=== PATIENT | female | born 1995 | race Caucasian/White ===

== ENCOUNTER 2016-10-03 18:25 | Emergency (ER) | payer BC | END 2016-10-03 19:50 | disposition left against medical advice (07) | LOC: ER 18:25 | DX: Z53.20 Procedure and treatment not carried out because of patient's decision for unspecified reasons (principal) ==

== ENCOUNTER 2016-12-01 23:04 | Emergency (ER) | payer BC ==
--- NOTE | 2016-12-01 23:22 | Emergency Department Record ---
History of Present Illness - General Chief Complaint: Chest Pain Stated Complaint: CHEST PAIN Time Seen by Provider: 12/01/16 23:11 Source: Patient Mode of Arrival: Ambulatory Limitations: No limitations - History of Present Illness Initial Comments: 21 yo female presents with rapid heart rate a feeling of heart pounding lasting about 2 hours tonight. She states she had chest pain and shortness of breath. She states over the last 3 years she has had similar episodes in the past. No syncope. She has not seen a raw silk grader or been given any specific diagnosis for her episodic palpitations. She has underlying thyroid disease. She recently saw her awning frame maker. Her TSH on 11/27 was 42. Her awning frame maker increased her Synthroid to 250mcg from 200mcg. Her last episode of palpitations was about 6 months ago. The patient's father and 6 of her uncles have heart disease due to "small arteries". MD Complaint: Chest pain -: Hour(s) (2) Onset: During rest Pain Radiation: None Severity: Moderate Consistency: Now resolved Improves With: Nothing Worsens With: Nothing Context: Other (Hx of the same) Treatments Prior to Arrival: None - Related Data Home Medications Medication Instructions Recorded Confirmed Last Taken Cholecalciferol (Vitamin D3) 1,000 unit PO DAILY 12/01/16 12/01/16 Unknown [Vitamin D3] Levothyroxine Sodium [Tirosint] 100 mcg PO DAILY 12/01/16 12/01/16 Unknown Allergies Allergy/AdvReac Type Severity Reaction Status Date / Time ceftriaxone sodium Allergy HIVES Verified 12/01/16 23:06 [From Rocephin] diazepam [From Valium] AdvReac BEHAVIORAL Verified 12/01/16 23:06 CHANGES morphine AdvReac NAUSEA Verified 12/01/16 23:06 Review of Systems Constitutional: Denies: Chills, Fever, Malaise, Weakness Eyes: Denies: Eye discharge ENT: Denies: Congestion, Throat pain Respiratory: Reports: Dyspnea. Denies: Cough, Hemoptysis, Stridor Cardiovascular: Reports: Chest pain, Palpitations. Denies: Dyspnea on exertion , Edema, Syncope Endocrine: Denies: Fatigue, Polydipsia, Polyuria Gastrointestinal: Denies: Abdominal pain, Diarrhea, Nausea, Vomiting Genitourinary: Denies: Dysuria, Urgency Musculoskeletal: Denies: Arthralgia, Back pain, Joint swelling, Myalgia Skin: Denies: Bruising, Change in color, Rash Neurological: Denies: Headache, Numbness, Weakness Psychiatric: Reports: Anxiety Hematological/Lymphatic: Denies: Blood Clots, Easy bleeding, Easy bruising, Swollen glands Past Medical History - SOCIAL HISTORY Smoking Status: Never smoker - RESPIRATORY Hx Respiratory Disorders: No - CARDIOVASCULAR Hx Cardio Disorders: No - NEURO Hx Neuro Disorders: No - GI Hx GI Disorders: No - Hx Genitourinary Disorders: Yes Hx Renal Disease: Yes (hx of Acute Kidney Failure) Comment:: Acute Kidney Failure - ENDOCRINE Hx Endocrine Disorders: Yes Hx Thyroid Disease: Yes (Hypothyroid) Comment:: Hx hashimotos disease - MUSCULOSKELETAL Hx Musculoskeletal Disorders: No - PSYCH Hx Psych Problems: Yes Hx Anxiety: Yes Hx Depression: Yes - HEMATOLOGY/ONCOLOGY Hx Hematology/Oncology Disorders: No Family Medical History Family Hx Comment (NOT TO BE USED IN PLACE OF ITEMS BELOW): hx of clotting disorder w mother Hx Heart Disease: Grandparents Physical Exam - General General Appearance: Alert, Oriented x3, Cooperative, Anxious Limitations: No limitations - Head Head exam: Atraumatic, Normal inspection - Eye Eye exam: Normal appearance. negative: Conjunctival injection, Periorbital swelling - ENT ENT exam: Normal exam, Mucous membranes moist Ear exam: Normal external inspection Nasal Exam: Normal inspection Mouth exam: Normal external inspection - Neck Neck exam: Normal inspection. negative: Lymphadenopathy, Thyromegaly - Respiratory Respiratory exam: Normal lung sounds bilaterally. negative: Accessory muscle use, Decreased breath sounds, Respiratory distress - Cardiovascular Cardiovascular Exam: Normal rhythm, Normal heart sounds, Tachycardia Peripheral Pulses: 2+: Radial (R), Radial (L) - GI/Abdominal GI/Abdominal exam: negative: Soft, Tenderness - Rectal Rectal exam: Deferred - exam: Deferred - Extremities Extremities exam: Normal inspection, Full ROM, Normal capillary refill. negative: Tenderness - Back Back exam: Reports: Normal inspection, Full ROM. Denies: Muscle spasm, Rash noted, Tenderness - Neurological Neurological exam: Alert, Normal gait, Oriented X3 - Psychiatric Psychiatric exam: Normal affect, Normal mood. negative: Agitated, Anxious - Skin Skin exam: Dry, Intact, Normal color, Warm. negative: Cyanosis, Diaphoretic, Erythema, Mottled Course Vital Signs 12/01/16 23:07 Temperature 98.2 F Pulse Rate [ 117 H Pulse Ox Probe] Respiratory 24 Rate Blood Pressure 137/89 [Left Arm] Pulse Ox 95 - Reevaluation(s) Reevaluation #1: EKG 23:05 Sinus tach with a rate of 110, intervals normal, axis normal, ST normal, 12/01/16 23:13 No changes from prior 12/01/16 23:15 The patient is doing better quickly as HR improves HR is 102 decreased form arrival 12/01/16 23:59 Reevaluation #2: HR 92 labs reviewed TSH is 27 improved from prior of 42 Normal troponin No electrolyte abnormalities 12/02/16 00:36 D-dimer is normal at 0.2 12/02/16 00:42 12/02/16 01:08 Repeat Troponin will occur at 3am Current HR is 87 12/02/16 04:34 Repeat Troponin is increased to 0.44 12/02/16 04:35 call center analyst for [facility] [place] paged. Reevaluation #3: I THAO Rodriguez of cardiology He will accept the patient for transfer to [facility] [place] for further work up given her chest pain with a troponin increase from .30 to .44 Prior EKG's will be sent including 11/2014 with SVT 12/02/16 05:08 12/02/16 05:21 12/02/16 06:56 Bed assigned by [facility] [place] Ready for transfer Medical Decision Making - Lab Data Result diagrams: 12/01/16 23:10 12/01/16 23:10 Disposition Disposition: Transfer Clinical Impression: Palpitations, History of PSVT (paroxysmal supraventricular tachycardia), Elevated troponin I level Disposition: Acute Care Hospital Transfer Transfer To: [facility] [place] Reason For Transfer: SVT, Elevated Troponin, Chest pain Accepting Physician: Michael Time Discussed w/Accepting Physician: 05:09 Condition: (2) Stable Instructions: Heart Palpitations (ED) Forms: Patient Portal Access Time of Disposition: 05:09 Quality - Quality Measures Quality Measures: N/A - Blood Pressure Screening Does Patient Have Any of the Following: No Blood Pressure Classification: Normal BP Reading Systolic Measurement: 91 Diastolic Measurement: 56 Screening for High Blood Pressure: < Normal BP, F/U Not Required > [G8783] Pre-Hypertensive Follow-up Interventions: Referral to alternative/primary care provider.
[2016-12-01] MEDS: 0.9 % SODIUM CHLORIDE 1,000 ML BAG IV ONE (23:55)
[2016-12-02] LABS: BASO % 0.5 % (0-6); EOS % 1.3 % (0-6); HEMATOCRIT 43.8 % (35.0-47.0); LYMPH % 32.9 % (16-45); MEAN CORPUSCULAR HEMOGLOBIN 23.6 pg (27-33); MEAN PLATELET VOLUME 10.3 fl (7.4-10.4); MONO % 10.3 % (0-9); PLATELET COUNT 357 K/uL (130-400); RED BLOOD COUNT 5.92 M/uL (3.80-5.40); RED CELL DISTRIBUTION WIDTH 16.7 % (11.5-14.5); WHITE BLOOD COUNT W/O DIFF 12.4 K/uL (4.2-12.2)
[2016-12-02 00:31] LABS: ALB/GLOB RATIO 1.2 (1.1-1.8); ALBUMIN 4.6 g/dL (4.0-5.0); ALKALINE PHOSPHATASE 93 U/L (35-104); ALT/SGPT 8 U/L (<33); AST/SGOT 17 U/L (10.0-35.0); CREATININE 0.8 mg/dL (0.5-0.9); EST GLOMERULAR FILTRATION RATE > 60 mL/min; GLUCOSE,RANDOM 89 mg/dL (74-109); THYROID STIMULATING HORMONE 27.66 uIU/mL (0.270-4.20); TOTAL PROTEIN 8.3 g/dL (6.6-8.7)
[2016-12-02 00:32] LABS: BILIRUBIN,TOTAL < 0.30 mg/dL (0.2-1.0)
[2016-12-02 03:12] LABS: URINE APPEARANCE CLEAR; URINE BILIRUBIN NEGATIVE (NEGATIVE); URINE BLOOD NEGATIVE (NEGATIVE); URINE COLOR YELLOW; URINE GLUCOSE (UA) NEGATIVE (NEGATIVE); URINE KETONE NEGATIVE (NEGATIVE); URINE LEUKOCYTE ESTERASE NEGATIVE (NEGATIVE); URINE NITRITE NEGATIVE (NEGATIVE); URINE PROTEIN NEGATIVE (NEGATIVE); URINE UROBILINOGEN 0.2 E.U./dL (0.20 - 1.00)
[2016-12-02 04:27] LABS: HCG,QUALITATIVE URINE NEGATIVE (NEGATIVE)
[2016-12-02] MEDS: ASPIRIN 81 MG CHEWABLE TABLET PO ONE (04:33)
== END 2016-12-02 07:30 | disposition short-term general hospital (02) ==
LOC: ER 23:04
DX: R00.2 Palpitations (principal); R79.89 Other specified abnormal findings of blood chemistry; R06.02 Shortness of breath; R07.89 Other chest pain; E06.3 Autoimmune thyroiditis
CPT/HCPCS: 80053; 81003; 81025; 83735; 84443; 84484; 85025; 85379; 93005; 93010; 99285; J7030

== ENCOUNTER 2017-05-04 18:47 | Emergency (ER) | payer BC ==
[2017-05-04] MEDS ORDERED: THROMBIN/GELATIN FOAM HEMOSTAT (THROMBI-GEL) TP ONE (19:30)
[2017-05-04] MEDS ORDERED: Diph,Pert(Acell),Tet Vac 0.5 ML SYR IM ONE (19:30)
--- NOTE | 2017-05-04 19:32 | Emergency Department Record ---
History of Present Illness - General Chief Complaint: Laceration(s) Stated Complaint: LAC ON FINGER Time Seen by Provider: 05/04/17 19:30 Source: Patient Mode of Arrival: Ambulatory Limitations: No limitations - History of Present Illness Initial Commments: 22 yo female presents ED for evaluation of a laceration to the right ring finger 1 hours prior to arrival. Patient reports that she was cutting vegetable when she sliced of a small tip of the lateral tip of the tuft. Patient denies other injury, denies health problems at her baseline, but is unsure of her last tetanus update. Patient reports FROM of the finger on examination. Onset/Timin -: Hour(s) Extremity Location: Right: Hand Place: Home Context: Accidental Associated Symptoms: None - [place] Coma Scale Eye Response: (4) Open spontaneously Motor Response: (6) Obeys commands Verbal Response: (5) Oriented Inge Total: 15 - Related Data Previous Rx's Medication Instructions Recorded Cephalexin [Keflex] 500 mg PO QID #28 cap 05/04/17 Allergies Allergy/AdvReac Type Severity Reaction Status Date / Time ceftriaxone sodium Allergy HIVES Verified 05/04/17 19:11 [From Rocephin] diazepam [From Valium] AdvReac BEHAVIORAL Verified 05/04/17 19:11 CHANGES morphine AdvReac NAUSEA Verified 05/04/17 19:11 Travel Screening - Travel/Exposure Within Last 30 Days Have you traveled within the last 30 days?: No - Travel/Exposure Within Last Year Have you traveled outside the [place] in the last year?: No - Additonal Travel Details Have you been exposed to anyone with a communicable illness?: No - Travel Symptoms Symptom Screening: None Review of Systems Constitutional: Denies: Chills, Fever, Malaise, Night sweats Eyes: Denies: Eye discharge, Eye pain ENT: Denies: Congestion, Ear pain, Epistaxis Respiratory: Denies: Cough, Dyspnea Cardiovascular: Denies: Chest pain, Dyspnea on exertion Endocrine: Denies: Fatigue, Heat or cold intolerance Gastrointestinal: Denies: Abdominal pain, Nausea, Vomiting Genitourinary: Denies: Incontinence, Retention Musculoskeletal: Denies: Arthralgia, Back pain Skin: Reports: Other (finger laceration). Denies: Bruising, Change in color Neurological: Denies: Abnormal gait, Confusion, Headache, Seizure Psychiatric: Denies: Anxiety Hematological/Lymphatic: Denies: Anemia, Blood Clots Past Medical History - SOCIAL HISTORY Smoking Status: Never smoker Alcohol Use: None Drug Use: None - RESPIRATORY Hx Respiratory Disorders: No - CARDIOVASCULAR Hx Cardio Disorders: No Comment:: rapid heart rate - NEURO Hx Neuro Disorders: No - GI Hx GI Disorders: No - Hx Genitourinary Disorders: Yes Hx Renal Disease: Yes (hx of Acute Kidney Failure) Comment:: Acute Kidney Failure - ENDOCRINE Hx Endocrine Disorders: Yes Hx Thyroid Disease: Yes (Hypothyroid) Comment:: Hx hashimotos disease - MUSCULOSKELETAL Hx Musculoskeletal Disorders: No - PSYCH Hx Psych Problems: Yes Hx Anxiety: Yes Hx Depression: Yes - HEMATOLOGY/ONCOLOGY Hx Hematology/Oncology Disorders: No Family Medical History Any Significant Family History?: Yes Family Hx Comment (NOT TO BE USED IN PLACE OF ITEMS BELOW): hx of clotting disorder w mother Hx Heart Disease: Grandparents Physical Exam - General General Appearance: Alert, Oriented x3, Cooperative, No acute distress Limitations: No limitations - Head Head exam: Atraumatic, Normocephalic, Normal inspection Head exam detail: negative: Abrasion, Contusion, Mcmullen's sign, General tenderness, Hematoma, Laceration - Eye Eye exam: Normal appearance. negative: Conjunctival injection, Periorbital swelling, Periorbital tenderness, Scleral icterus - ENT Ear exam: negative: Auricular hematoma, Auricular trauma Nasal Exam: negative: Active bleeding, Discharge, Dried blood, Foreign body Mouth exam: negative: Drooling, Laceration, Muffled voice, Tongue elevation Teeth exam: negative: Dental caries, Dental tenderness # - Neck Neck exam: Normal inspection. negative: Meningismus, Tenderness - Respiratory Respiratory exam: Normal lung sounds bilaterally. negative: Rales, Respiratory distress, Rhonchi, Stridor - Cardiovascular Cardiovascular Exam: Regular rate, Normal rhythm, Normal heart sounds - GI/Abdominal GI/Abdominal exam: Soft. negative: Rebound, Rigid, Tenderness - Rectal Rectal exam: Deferred - exam: Deferred - Extremities Extremities exam: Tenderness, Other (0.5 cm tip lacertion with tissue loss present, no tissure present for closure of the wound. FROM withotu evidence for tendon laceration.). negative: Calf tenderness, Pedal edema - Back Back exam: Denies: CVA tenderness (R), CVA tenderness (L) - Neurological Neurological exam: Alert, Normal gait, Oriented X3 - Psychiatric Psychiatric exam: Normal affect, Normal mood - Skin Skin exam: Normal color. negative: Abrasion Type of lesion: negative: abrasion Course Vital Signs 05/04/17 19:07 Temperature 98.9 F Pulse Rate 94 H Respiratory 20 Rate Blood Pressure 118/88 Pulse Ox 96 - Reevaluation(s) Reevaluation #1: 05/04/17 19:41 Patient presents to ED for evaluation of finger tuft laceration with tissue loss , cannot be closed primarily dud to tissue loss. Will place thrombi-pad with instructions for dressing changes, administer Keflex for antibiotic prophylaxis. Disposition Disposition: Discharge Clinical Impression: Finger laceration Qualifiers: Encounter type: initial encounter Finger: ring finger Damage to nail status: without damage Foreign body presence: without foreign body Laterality: right Qualified Code(s): S61.214A - Laceration without foreign body of right ring finger without damage to nail, initial encounter Disposition: Home, Self-Care Condition: (2) Stable Instructions: Laceration (ED) Additional Instructions: Return to ED if your symptoms worsen or if you have any concerns. Dressing changes daily for 1 week. Keflex as directed. Follow-up with your family doctor in 3-5 days as directed. Prescriptions: Cephalexin [Keflex] 500 mg PO QID #28 cap Forms: Patient Portal Access Time of Disposition: 19:32 Quality - Quality Measures Quality Measures: N/A - Blood Pressure Screening Does Patient Have Any of the Following: No Blood Pressure Classification: Pre-Hypertensive BP Reading Systolic Measurement: 118 Diastolic Measurement: 88 Screening for High Blood Pressure: < Pre-Hypertensive BP, F/U Documented > [ G8950] Pre-Hypertensive Follow-up Interventions: Referral to alternative/primary care provider.
[2017-05-04] MEDS ORDERED: CEPHALEXIN 500 MG CAPSULE PO STA (19:42)
[2017-05-04] MEDS ORDERED: IBUPROFEN 600 MG TABLET PO ONE (19:42)
== END 2017-05-04 20:08 | disposition home or self-care (01) ==
LOC: ER 18:47
DX: S61.214A Laceration without foreign body of right ring finger without damage to nail, initial encounter (principal); W26.0XXA Contact with knife, initial encounter; Y93.G1 Activity, food preparation and clean up; Y92.009 Unspecified place in unspecified non-institutional (private) residence as the place of occurrence of the external cause
CPT/HCPCS: 90715; 96372; 99283

== ENCOUNTER 2017-06-12 11:00 | Emergency (ER) | payer BC ==
--- NOTE | 2017-06-12 11:21 | Emergency Department Record ---
History of Present Illness - General Chief Complaint: Abdominal Pain Stated Complaint: ABD PAIN LEFT SIDE Time Seen by Provider: 06/12/17 11:18 Source: Patient Mode of Arrival: Ambulatory Limitations: No limitations - History of Present Illness Initial Comments: 22 yo female presents with abdominal pain for about 1 to 1.5 weeks. The pain is epigastric and LUQ. She has had two stools during that time. They have been firm. No blood. She has had occasional headaches. Occasional radiation of pain from the epigastrium to the chest. Some burping. No acid taste. The pain occasionally radiates to the back. She was seen in the [facility] care today. She had a normal UA and negative UCG and sent to the ED MD Complaint: Abdominal pain -: Week(s) (1) Location: Epigastric, LUQ Radiation: Back, LUQ Migration to: LUQ Severity: Moderate Quality: Aching Consistency: Intermittent Improves With: Nothing Worsens With: Eating Associated Symptoms: Other - Related Data Previous Rx's Medication Instructions Recorded Polyethylene Glycol 3350 [Miralax] 1 packet PO DAILY #20 packet 06/12/17 Allergies Allergy/AdvReac Type Severity Reaction Status Date / Time ceftriaxone sodium Allergy HIVES Verified 06/12/17 11:11 [From Rocephin] diazepam [From Valium] AdvReac BEHAVIORAL Verified 06/12/17 11:11 CHANGES morphine AdvReac NAUSEA Verified 06/12/17 11:11 Review of Systems Constitutional: Denies: Chills, Fever, Malaise, Weakness Eyes: Denies: Eye discharge ENT: Denies: Congestion, Dental pain, Ear pain, Throat pain Respiratory: Denies: Cough, Dyspnea, Hemoptysis, Stridor, Wheezes Cardiovascular: Reports: Chest pain. Denies: Palpitations, Syncope Endocrine: Denies: Fatigue Gastrointestinal: Reports: As per HPI, Abdominal pain, Constipation, Nausea. Denies: Diarrhea, Hematemesis, Hematochezia, Melena, Vomiting Genitourinary: Denies: Abnormal menses, Dysuria Musculoskeletal: Reports: Back pain. Denies: Arthralgia, Joint swelling, Myalgia Skin: Denies: Bruising, Change in color, Rash Neurological: Reports: Headache. Denies: Numbness, Vertigo, Weakness Psychiatric: Reports: Depression. Denies: Anxiety Hematological/Lymphatic: Denies: Blood Clots, Easy bleeding, Easy bruising, Swollen glands Past Medical History - SOCIAL HISTORY Smoking Status: Never smoker Drug Use: None - RESPIRATORY Hx Respiratory Disorders: No - CARDIOVASCULAR Hx Cardio Disorders: No Comment:: rapid heart rate - NEURO Hx Neuro Disorders: No - GI Hx GI Disorders: No - Hx Genitourinary Disorders: Yes Hx Renal Disease: Yes (hx of Acute Kidney Failure) Comment:: Acute Kidney Failure - ENDOCRINE Hx Endocrine Disorders: Yes Hx Thyroid Disease: Yes (Hypothyroid) Comment:: Hx hashimotos disease - MUSCULOSKELETAL Hx Musculoskeletal Disorders: No - PSYCH Hx Psych Problems: Yes Hx Anxiety: Yes Hx Depression: Yes - HEMATOLOGY/ONCOLOGY Hx Hematology/Oncology Disorders: No Family Medical History Family Hx Comment (NOT TO BE USED IN PLACE OF ITEMS BELOW): hx of clotting disorder w mother Hx Heart Disease: Grandparents Physical Exam - General General Appearance: Alert, Oriented x3, Cooperative, No acute distress Limitations: No limitations - Head Head exam: Atraumatic, Normal inspection - Eye Eye exam: Normal appearance, Conjunctival injection. negative: Scleral icterus - ENT ENT exam: Normal exam, Mucous membranes moist, Normal orophraynx Ear exam: Normal external inspection Nasal Exam: Normal inspection Mouth exam: Normal external inspection Teeth exam: Normal inspection Throat exam: Normal inspection - Neck Neck exam: Normal inspection - Respiratory Respiratory exam: Normal lung sounds bilaterally. negative: Respiratory distress - Cardiovascular Cardiovascular Exam: Regular rate, Normal rhythm, Normal heart sounds - GI/Abdominal GI/Abdominal exam: Soft, Normal bowel sounds, Tenderness (mild epigastric and LUQ tenderness to palpation, soft, non tender remaining abdomen). negative: Distended, Guarding, Rebound, Rigid - Rectal Rectal exam: Deferred - exam: Deferred - Extremities Extremities exam: Normal inspection. negative: Calf tenderness, Pedal edema, Tenderness - Back Back exam: Reports: Normal inspection, Full ROM. Denies: CVA tenderness (R), CVA tenderness (L), Muscle spasm, Paraspinal tenderness, Rash noted, Tenderness , Vertebral tenderness - Neurological Neurological exam: Alert, Normal gait, Oriented X3. negative: Abnormal gait, Altered - Psychiatric Psychiatric exam: Normal affect, Normal mood. negative: Agitated, Anxious - Skin Skin exam: Dry, Intact, Normal color, Warm Course - Reevaluation(s) Reevaluation #1: 06/12/17 11:22 The UA was reviewed Negative for blood or infection UCG was negative 06/12/17 12:00 The CBC was reviewed. No acute changes The AAS was reviewed. Significant stool throughout the colon. 06/12/17 12:16 I did discuss with her her thyroid likely plays a role in her constipation. She has longstanding hypothyroidism that is followed as an outpatient. Medical Decision Making - Lab Data Result diagrams: 06/12/17 11:39 06/12/17 11:39 Disposition Disposition: Discharge Clinical Impression: Epigastric pain, Constipation Disposition: Home, Self-Care Condition: (1) Good Instructions: Constipation (ED), Abdominal Pain (ED) Additional Instructions: Stay well hydrated Return if you have vomiting, fever, or any concerns of worsening You have constipation on your XR today Increase your fluids, fruit, fiber Call your doctor to be seen in the next one week Prescriptions: Polyethylene Glycol 3350 [Miralax] 1 packet PO DAILY #20 packet Forms: Patient Portal Access Time of Disposition: 12:02 Quality - Quality Measures Quality Measures: N/A - Blood Pressure Screening Does Patient Have Any of the Following: No Blood Pressure Classification: Normal BP Reading Systolic Measurement: 111 Diastolic Measurement: 77 Screening for High Blood Pressure: < Normal BP, F/U Not Required > [G8783]
[2017-06-12 11:48] LABS: BASO % 0.4 % (0-6); EOS % 0.7 % (0-6); GRAN % 69.2 % (47-80); HEMATOCRIT 40.1 % (35.0-47.0); HEMOGLOBIN 12.9 gm/dl (11.6-16.0); LYMPH % 21.6 % (16-45); MEAN CELL VOLUME 78.3 fl (81-97); MEAN CORPUSCULAR HEMOGLOBIN 25.2 pg (27-33); MEAN CORPUSCULAR HGB CONC 32.2 g/dl (32-36); MONO % 8.1 % (0-9); PLATELET COUNT 331 K/uL (130-400); RED BLOOD COUNT 5.12 M/uL (3.80-5.40); RED CELL DISTRIBUTION WIDTH 14.6 % (11.5-14.5); WHITE BLOOD COUNT W/O DIFF 8.9 K/uL (4.2-12.2)
[2017-06-12 12:08] LABS: BLOOD UREA NITROGEN 8 mg/dL (6-20); CREATININE 0.7 mg/dL (0.5-0.9); EST GLOMERULAR FILTRATION RATE > 60 mL/min
[2017-06-12 12:09] LABS: TOTAL PROTEIN 7.7 g/dL (6.6-8.7)
[2017-06-12 12:11] LABS: GLUCOSE,RANDOM 90 mg/dL (74-109)
[2017-06-12 12:13] LABS: ALT/SGPT 8 U/L (<33)
[2017-06-12 12:14] LABS: ALB/GLOB RATIO 1.3 (1.1-1.8); ALBUMIN 4.4 g/dL (4.0-5.0); ALKALINE PHOSPHATASE 70 U/L (35-104); AST/SGOT 12 U/L (10.0-35.0); LIPASE 36 U/L (13-60)
--- NOTE | 2017-06-13 09:52 | RADIOLOGY REPORT ---
EXAM: ABDOMEN, SINGLE VIEW HISTORY: PAIN. TECHNIQUE: A single AP view of the abdomen was obtained. Comparison: None. FINDINGS: Evaluation for free air is limited on the supine view. There is a large amount of stool in the colon. The gas pattern is nonspecific. IMPRESSION: ABUNDANT STOOL IN THE COLON. JOB NUMBER: [id number] MTDD
== END 2017-06-12 12:34 | disposition home or self-care (01) ==
LOC: ER 11:00
DX: K59.00 Constipation, unspecified (principal); R10.13 Epigastric pain; N17.9 Acute kidney failure, unspecified; E03.9 Hypothyroidism, unspecified
CPT/HCPCS: 74018; 80053; 83690; 85025; 99283; 99284

== ENCOUNTER 2018-02-22 18:10 | Emergency (ER) | payer BC ==
--- NOTE | 2018-02-22 18:25 | Emergency Department Record ---
History of Present Illness - General Chief complaint: Female Urogenital Problem Time Seen by Provider: 02/22/18 18:15 Source: Patient Mode of Arrival: Ambulatory Limitations: No limitations - History of Present Illness Initial comments: 23 yo female presents to ED for evaluation of dysuria symptoms for the past 1 week. Patient reports similar symptoms previously related to UTIs, denies fevers, chills, abdominal pain, or flank pain symptoms. Patient denies health problems at her baseline other than hypothyroidism. MD Complaint: Dysuria Onset/Timin -: Week(s) Location: Suprapubic Radiation: Non-radiating Severity: Moderate Severity scale (1-10): 5 Quality: Aching Consistency: Constant Worsens with: Urination Patient : No Associated Symptoms: Denies other symptoms - Related Data Home Medications Medication Instructions Recorded Confirmed Last Taken Lubiprostone [Amitiza] 8 mcg PO DAILY 02/22/18 02/22/18 1 Day Ago ~02/21/18 Previous Rx's Medication Instructions Recorded Nitrofurantoin Tarrant [Macrobid] 100 mg PO BID #14 capsule 02/22/18 Phenazopyridine HCl [Pyridium] 200 mg PO TID #6 tab 02/22/18 Allergies Allergy/AdvReac Type Severity Reaction Status Date / Time ceftriaxone sodium Allergy HIVES Unverified 11/28/17 07:28 [From Rocephin] diazepam [From Valium] AdvReac BEHAVIORAL Unverified 11/28/17 07:28 CHANGES morphine AdvReac NAUSEA Unverified 11/28/17 07:28 Travel Screening - Travel/Exposure Within Last 30 Days Have you traveled within the last 30 days?: No - Travel/Exposure Within Last Year Have you traveled outside the [place] in the last year?: No - Additonal Travel Details Have you been exposed to anyone with a communicable illness?: No - Travel Symptoms Symptom Screening: None Review of Systems Constitutional: Denies: Chills, Fever, Malaise, Night sweats Eyes: Denies: Eye discharge, Eye pain ENT: Denies: Congestion, Ear pain, Epistaxis Respiratory: Denies: Cough, Dyspnea Cardiovascular: Denies: Chest pain, Dyspnea on exertion Endocrine: Denies: Fatigue, Heat or cold intolerance Gastrointestinal: Denies: Abdominal pain, Nausea, Vomiting Genitourinary: Reports: Dysuria. Denies: Incontinence, Retention Musculoskeletal: Denies: Arthralgia, Back pain Skin: Denies: Bruising, Change in color Neurological: Denies: Abnormal gait, Confusion, Headache, Seizure Psychiatric: Denies: Anxiety Hematological/Lymphatic: Denies: Anemia, Blood Clots Past Medical History - SOCIAL HISTORY Smoking Status: Never smoker Alcohol Use: None Drug Use: None - RESPIRATORY Hx Respiratory Disorders: No - CARDIOVASCULAR Hx Cardio Disorders: No Comment:: rapid heart rate - NEURO Hx Neuro Disorders: No - GI Hx GI Disorders: No - Hx Genitourinary Disorders: Yes Hx Renal Disease: Yes (hx of Acute Kidney Failure) Comment:: Acute Kidney Failure - ENDOCRINE Hx Endocrine Disorders: Yes Hx Thyroid Disease: Yes (Hypothyroid) Comment:: Hx hashimotos disease - MUSCULOSKELETAL Hx Musculoskeletal Disorders: No - PSYCH Hx Psych Problems: Yes Hx Anxiety: Yes Hx Depression: Yes - HEMATOLOGY/ONCOLOGY Hx Hematology/Oncology Disorders: No Family Medical History Any Significant Family History?: Yes Family Hx Comment (NOT TO BE USED IN PLACE OF ITEMS BELOW): hx of clotting disorder w mother Hx Heart Disease: Grandparents Physical Exam - General General Appearance: Alert, Oriented x3, Cooperative, Mild distress Limitations: No limitations - Head Head exam: Atraumatic, Normocephalic, Normal inspection Head exam detail: negative: Abrasion, Contusion, Mcmullen's sign, General tenderness, Hematoma, Laceration - Eye Eye exam: Normal appearance. negative: Conjunctival injection, Periorbital swelling, Periorbital tenderness, Scleral icterus - ENT Ear exam: negative: Auricular hematoma, Auricular trauma Nasal Exam: negative: Active bleeding, Discharge, Dried blood, Foreign body Mouth exam: negative: Drooling, Laceration, Muffled voice, Tongue elevation - Neck Neck exam: Normal inspection. negative: Meningismus, Tenderness - Respiratory Respiratory exam: Normal lung sounds bilaterally. negative: Rales, Respiratory distress, Rhonchi, Stridor - Cardiovascular Cardiovascular Exam: Regular rate, Normal rhythm, Normal heart sounds - GI/Abdominal GI/Abdominal exam: Soft. negative: Rebound, Rigid, Tenderness - Rectal Rectal exam: Deferred - exam: Deferred - Extremities Extremities exam: Normal inspection. negative: Pedal edema, Tenderness - Back Back exam: Denies: CVA tenderness (R), CVA tenderness (L) - Neurological Neurological exam: Alert, Normal gait, Oriented X3 - Psychiatric Psychiatric exam: Normal affect, Normal mood - Skin Skin exam: Normal color. negative: Abrasion Type of lesion: negative: abrasion Course Vital Signs 02/22/18 18:13 Temperature 98.7 F Pulse Rate 98 H Respiratory 18 Rate Blood Pressure 130/84 Pulse Ox 99 - Reevaluation(s) Reevaluation #1: 02/22/18 18:42 UA was reviewed: 7-10 RBCs 10-15 Epithelial cells 36-50 WBCs Patient was updated on her result, appears contaminated however with the number of WBCs and symptoms, will treat with Macrobid and Pyridium as directed. Patient agrees with the plan of care as discussed. Disposition Disposition: Discharge Clinical Impression: Cystitis Disposition: Home, Self-Care Condition: (2) Stable Instructions: Urinary Tract Infection in Women (ED) Additional Instructions: Return to ED if your symptoms worsen or if you have any concerns. Macrobid and Pyridium as directed. Follow-up with your family doctor in 3-5 days as directed. Prescriptions: Nitrofurantoin Tarrant [Macrobid] 100 mg PO BID #14 capsule Phenazopyridine HCl [Pyridium] 200 mg PO TID #6 tab Forms: Patient Portal Access Time of Disposition: 18:44 Quality - Quality Measures Quality Measures: N/A - Blood Pressure Screening Does Patient Have Any of the Following: No Blood Pressure Classification: Pre-Hypertensive BP Reading Systolic Measurement: 130 Diastolic Measurement: 84 Screening for High Blood Pressure: < Pre-Hypertensive BP, F/U Documented > [ [id number]] Pre-Hypertensive Follow-up Interventions: Referral to alternative/primary care provider.
[2018-02-22 18:33] LABS: URINE APPEARANCE SL CLOUDY; URINE BILIRUBIN NEGATIVE (NEGATIVE); URINE BLOOD TRACE-I (NEGATIVE); URINE COLOR YELLOW; URINE GLUCOSE (UA) NEGATIVE (NEGATIVE); URINE KETONE NEGATIVE (NEGATIVE); URINE LEUKOCYTE ESTERASE SMALL (NEGATIVE); URINE NITRITE NEGATIVE (NEGATIVE); URINE UROBILINOGEN 0.2 E.U./dL (0.20 - 1.00)
[2018-02-22 18:40] LABS: URINE MUCUS LIGHT; URINE WBC 36 - 50 (0-2/hpf)
== END 2018-02-22 18:49 | disposition home or self-care (01) ==
LOC: ER 18:10
DX: N30.00 Acute cystitis without hematuria (principal)
CPT/HCPCS: 81001; 99282

== ENCOUNTER 2018-09-01 10:24 | Day surgery (SDC) | payer BC ==
[2018-09-01] MEDS ORDERED: PROPOFOL 10 MG/ML VIAL IV ONE (10:25)
[2018-09-01] MEDS ORDERED: LIDOCAINE 2% MDV (20MG/ML) 20ML VIAL IV ONE (10:25)
--- NOTE | 2018-09-03 07:50 | Operative Note ---
OPERATION: ESOPHAGOGASTRODUODENOSCOPY with multiple biopsies. INDICATION: Iron deficiency. Upper endoscopy is performed at this time for further evaluation. ANESTHESIA: Intravenous sedation was administered by the department of anesthesiology and included Diprivan titrated to effect. PROCEDURE: Following informed consent from this alert individual, including a discussion of the risks and benefits of the procedure and an opportunity for the patient to ask questions, the patient was in the left lateral decubitus position. The Olympus [id number] video endoscope was inserted into the esophagus without resistance. The proximal esophagus had a normal appearance with normal folds and distensibility. The mid esophagus likewise was free from changes. The GE junction had some mild erythema with edema noted, and for this reason biopsies were taken. There were no ulcerations or erosions noted. The stomach was entered and found to be unremarkable except for the prepyloric region which had some focal areas of erythema with edema and again biopsies were taken. The duodenum was cannulated and found to be unremarkable. Biopsies were taken from the duodenal bulb and second portion of the duodenum to evaluate for the remote possibility of celiac sprue and malabsorption. The endoscope was then withdrawn back into the body of the stomach. Retroflexion accomplished following air insufflation failed to demonstrate any changes. The endoscope was then straightened and withdrawn. The patient tolerated the procedure well and was returned to the recovery area in stable condition. IMPRESSION: 1. Minimal esophagitis at the GE junction, biopsies taken. 2. Very mild prepyloric antral gastritis without erosions or ulcerations, biopsies taken. 3. Normal duodenum, biopsies taken to rule out celiac sprue and malabsorption. RECOMMENDATION: Further recommendations will be forthcoming pending results of pathology obtained today. She will also undergo colonoscopy at this time. As always, thank you for allowing me to participate in the care of your patient. CC: AZUL Ortez
--- NOTE | 2018-09-03 07:50 | Operative Note ---
OPERATION: COLONOSCOPY to the cecum and terminal ileum. INDICATION: Iron deficiency with history of intermittent bright red rectal bleeding. Stool Hemoccults were negative. She does have a tendency towards constipation. Clinically improved with a combination of Amitiza and occasional MiraLax usage. Colonoscopy is performed at this time for further evaluation. ANESTHESIA: Intravenous sedation was administered by the department of anesthesiology and included Diprivan titrated to effect. PROCEDURE: Following informed consent from this alert individual including a discussion of the risks and benefits of the procedure and an opportunity for the patient to ask questions, the patient was in the left lateral decubitus position. A digital rectal examination was performed. No abnormalities were noted. Following this, the Olympus [id number] video colonoscope was inserted into the rectum without resistance. The rectal mucosa had a normal appearance with normal folds and distensibility. The colonoscope was advanced up through the colon to the level of the cecum without much difficulty. Throughout the bowel the mucosa appeared normal, the folds were normal, and the bowel was fairly well distensible. The cecum was defined by noting the appendiceal orifice and ileocecal valve. The terminal ileum was then cannulated and found to be normal as well. Overall, the colon preparation was good. From the base of the cecum, the colonoscope was then withdrawn. No abnormalities were noted throughout the bowel upon withdrawal. Retroflexion in the rectum was endoscopically unremarkable. The instrument was straightened and withdrawn. The patient tolerated the procedure well and was returned to the recovery area in stable condition. IMPRESSION: Unremarkable colonoscopy to the cecum and terminal ileum. RECOMMENDATIONS: The patient was advised to follow up with her primary caregiver. She can continue with Amitiza and MiraLax to facilitate stool regularity. As always, thank you for allowing me to participate in the care of your patient. CC: AZUL Ortez
== END 2018-09-01 12:55 | disposition home or self-care (01) ==
LOC: HOP 10:24
PROVIDERS: ATTEND Internal Medicine Gastroenterology
DX: E61.1 Iron deficiency (principal); K62.5 Hemorrhage of anus and rectum; K59.00 Constipation, unspecified; K21.0 Gastro-esophageal reflux disease with esophagitis; K29.70 Gastritis, unspecified, without bleeding; E03.9 Hypothyroidism, unspecified
CPT/HCPCS: 81025